=== PATIENT | male | born 1955 | race Two or more races ===

== ENCOUNTER 2018-06-27 07:21 | Outpatient (CLI) | payer OTHER | END 2018-06-27 07:25 | disposition home or self-care (01) | LOC: NUCLEAR 07:21 | DX: I25.10 Atherosclerotic heart disease of native coronary artery without angina pectoris (principal); I20.8 Other forms of angina pectoris | CPT/HCPCS: A9500; 93017; 78452 ==

== ENCOUNTER 2022-11-09 07:06 | Outpatient (CLI) | payer OTHER | END 2022-11-09 13:11 | disposition home or self-care (01) | LOC: SONOGRAMA 07:06 | PROVIDERS: ATTEND Internal Medicine Cardiovascular Disease | DX: J44.9 Chronic obstructive pulmonary disease, unspecified (principal); R10.9 Unspecified abdominal pain; K70.30 Alcoholic cirrhosis of liver without ascites ==

== ENCOUNTER 2022-11-13 11:00 | Inpatient (IN) | payer OTHER ==
[~2022-11-13] VITALS: Ht 175.3 cm; Wt 68.0 kg
--- NOTE | 2022-11-13 11:09 | NUR ---
SE RECIBE PTE ALERTA Y ORIENTADO PTE REFIERE VOMITOS HACE VARIOS SALDAÑA, PTE REFIERE QUE VINO EN EL [facility] [place], SE TAMARA VITALES Y SE BOBO EN SALVATORE DE ESPER[place].
--- NOTE | 2022-11-13 12:49 | NUR ---
PTE ALERTA,ESTABLE Y ORIENTADO.SE EDUCA SOBRE EL TRATAMIENTO QUE RECIBIRA EN L [facility] Y NILDA REFIERE ENTENDER
--- NOTE | 2022-11-13 16:03 | NUR ---
PTE ALERTA Y ORIENTADO X [address] ESFERAS SIENDO [address]UADO POR [address] NORRIS.
--- NOTE | 2022-11-13 20:00 | NUR ---
1945 SE CONTACTA A [facility], PARA CONOCER SI PTE POSEE HX, REFIERE NO POSEE HX. SE REQUIZAN DOS UNIDADES DE PRBC'S PARA TRANSFUSION. 1949 SE COLECTAN TUBOS PILOTOS, BAJO MEDIDAS ASEPTICAS. 1999 SE COLECTAN TUBOS PILOTOS, BAJO MEDIDAS ASEPTICAS. SE ENTREGAN TUBOS A LAB[facility]ATORIO [facility].
== END 2022-11-24 13:46 | disposition home or self-care (01) | DRG 379 ==
LOC: ER 11:00 → MEDI 21:56
PROVIDERS: ADMIT Internal Medicine; ATTEND Internal Medicine
PROC: BW21ZZZ Computerized Tomography (CT Scan) of Abdomen and Pelvis (ICD-10-PCS; 2022-11-13)
PROC: B24BZZZ Ultrasonography of Heart with Aorta (ICD-10-PCS; 2022-11-13)
PROC: BW24YZZ Computerized Tomography (CT Scan) of Chest and Abdomen using Other Contrast (ICD-10-PCS; 2022-11-13)
PROC: BF37ZZZ Magnetic Resonance Imaging (MRI) of Pancreas (ICD-10-PCS; 2022-11-13)
PROC: 4A12X4Z Monitoring of Cardiac Electrical Activity, External Approach (ICD-10-PCS; 2022-11-14)
PROC: 30233N1 Transfusion of Nonautologous Red Blood Cells into Peripheral Vein, Percutaneous Approach (ICD-10-PCS; 2022-11-14)
PROC: 02HV33Z Insertion of Infusion Device into Superior Vena Cava, Percutaneous Approach (ICD-10-PCS; 2022-11-15)
PROC: 0DB68ZX Excision of Stomach, Via Natural or Artificial Opening Endoscopic, Diagnostic (ICD-10-PCS; principal; 2022-11-16)
PROC: BW21YZZ Computerized Tomography (CT Scan) of Abdomen and Pelvis using Other Contrast (ICD-10-PCS; 2022-11-21)
DX: K92.1 Melena (principal); K83.8 Other specified diseases of biliary tract; K63.89 Other specified diseases of intestine; K76.9 Liver disease, unspecified; D64.9 Anemia, unspecified; I25.10 Atherosclerotic heart disease of native coronary artery without angina pectoris; I11.9 Hypertensive heart disease without heart failure; Z20.822 Contact with and (suspected) exposure to COVID-19; F32.A Depression, unspecified; F10.21 Alcohol dependence, in remission

== ENCOUNTER 2023-10-24 02:17 | Emergency (ER) | payer OTHER ==
[~2023-10-24] VITALS: Ht 175.3 cm; Wt 63.5 kg
[2023-10-24] MEDS ORDERED: METROPOLOL (02:40)
[2023-10-24] MEDS ORDERED: SINVASTATIN (02:41)
[2023-10-24 06:05] LABS: HEMOGLOBIN 11.4 g/dL (13-16.00); MEAN CELL VOLUME 93.8 fL (80.0-100.00); MEAN CORPUSCULAR HEMOGLOBIN 32.6 pg (27.00-32.0); MEAN CORPUSCULAR HGB CONC 34.7 g/dl (32.0-36.0); PLATELET COUNT 224 K/uL (150-450); RED BLOOD COUNT 3.51 M/uL (4.00-6.00); RED CELL DISTRIBUTION WIDTH 13.1 % (11.5-14.5)
[2023-10-24 06:31] LABS: PARTIAL THROMBOPLASTIN TIME 24.9 SECONDS (22.0-34.0); PROTHROMBIN TIME 10.5 SECONDS (9.0-11.5)
[2023-10-24 07:17] LABS: ALBUMIN 3.1 gm/dL (3.4-5.0); ALKALINE PHOSPHATASE 64 U/L (50-136); ALT/SGPT 18 U/L (12-78); ANION GAP 9 (10.0-20.0); AST/SGOT 6 U/L (15-37); BILIRUBIN TOTAL 0.25 mg/dL (0.3-1.2); BILIRUBIN,CONJUGATED < 0.10 mg/dL (0.0-0.2); BILIRUBIN,UNCONJUGATED 0.15 mg/dL (0.0-0.6); BLOOD UREA NITROGEN 35 mg/dL (7-18); BUN CREA RATIO 45 (7.0-25.0); CALCIUM 8.3 mg/dL (8.5-10.1); CARBON DIOXIDE 27 mEq/L (21-32); CHLORIDE 109 mmol/L (98-107); CREATININE SERUM 0.77 mg/dL (0.70-1.30); GFR 101.08; GLOBULINA 3.1 G/DL (2.4-3.5); GLUCOSE FASTING 107 mg/dL (65-100); OSMOLALITY SERUM 290 MOSM/KG (275-295); POTASSIUM 4.02 mEq/L (3.5-5.1); SODIUM 141 mmol/L (136-145); TOTAL PROTEIN 6.2 gm/dL (6.4-8.2)
[2023-10-24 07:33] LABS: URINE APPEARANCE Clear; URINE BILIRRUBIN Negative (NEGATIVE); URINE BLOOD Negative; URINE COLOR Yellow; URINE GLUCOSE Negative (NEGATIVE); URINE LEUKOCYTE Negative; URINE NITRATE Negative; URINE PROTEIN Negative (NEGATIVE)
[2023-10-24 07:34] LABS: URINE BACTERIA 57.9 uL (0.0-1933); URINE EPITHELIAL CELLS 7.7 uL (0.0-38.8); URINE RBC 16.9 uL (0.0-20.8); URINE WBC 9.8 uL (0.0-23.2)
[2023-10-24 08:23] LABS: ob NEGATIVE (NEGATIVE)
[2023-10-24 12:21] LABS: HEMATOCRIT 31.1 % (39.0-48.0); HEMOGLOBIN 10.6 g/dL (13-16.00); MEAN CELL VOLUME 94.5 fL (80.0-100.00); MEAN CORPUSCULAR HEMOGLOBIN 32.4 pg (27.00-32.0); MEAN CORPUSCULAR HGB CONC 34.3 g/dl (32.0-36.0); PLATELET COUNT 216 K/uL (150-450); RED BLOOD COUNT 3.29 M/uL (4.00-6.00); RED CELL DISTRIBUTION WIDTH 13.1 % (11.5-14.5)
== END 2023-10-24 14:02 | disposition home or self-care (01) ==
LOC: ER 02:17
PROVIDERS: Emergency Medicine; General Practice
DX: K92.0 Hematemesis (principal); I10 Essential (primary) hypertension; K76.89 Other specified diseases of liver
CPT/HCPCS: 36415; 96365; 96366; 99284; J3490; J7030

== ENCOUNTER 2023-10-24 22:32 | Inpatient (IN) | payer OTHER ==
[~2023-10-24] VITALS: Ht 152.4 cm; Wt 68.0 kg
[~2023-10-24 22:32] MED LIST: METROPOLOL; SINVASTATIN
[2023-10-24] MEDS ORDERED: PANTOPRAZOLE SODIUM 40 MG in 0.9 % SODIUM CHLORIDE 8 ML IV PUSH STA (23:06)
[2023-10-24] MEDS ORDERED: CEFTRIAXONE SODIUM 2,000 MG VIAL IV ONE (23:15)
[2023-10-24] MEDS ORDERED: PANTOPRAZOLE SODIUM 40 MG/VIAL VIAL IV SCH (23:15)
[2023-10-24] MEDS ORDERED: OCTREOTIDE ACETATE 0.05MG/ML (50MCG/ML) AMPUL IV ONE (23:15)
[2023-10-24] MEDS ORDERED: 0.9 % SODIUM CHLORIDE 1,000 ML IV SCH (23:15)
[2023-10-25 00:34] LABS: HEMATOCRIT 24.1 % (39.0-48.0); HEMOGLOBIN 8.2 g/dL (13-16.00); MEAN CELL VOLUME 93.8 fL (80.0-100.00); MEAN CORPUSCULAR HEMOGLOBIN 31.9 pg (27.00-32.0); PLATELET COUNT 206 K/uL (150-450); RED BLOOD COUNT 2.57 M/uL (4.00-6.00)
[2023-10-25 00:42] LABS: INR 1.03; PARTIAL THROMBOPLASTIN TIME 22.8 SECONDS (22.0-34.0); PROTHROMBIN TIME 10.8 SECONDS (9.0-11.5)
[2023-10-25 00:47] LABS: ALBUMIN 2.9 gm/dL (3.4-5.0); ALKALINE PHOSPHATASE 60 U/L (50-136); ALT/SGPT 16 U/L (12-78); AMYLASE 47 U/L (25-115); ANION GAP 12 (10.0-20.0); AST/SGOT 11 U/L (15-37); BILIRUBIN TOTAL 0.21 mg/dL (0.3-1.2); BILIRUBIN,CONJUGATED < 0.10 mg/dL (0.0-0.2); BILIRUBIN,UNCONJUGATED 0.11 mg/dL (0.0-0.6); BLOOD UREA NITROGEN 33 mg/dL (7-18); BUN CREA RATIO 42 (7.0-25.0); CALCIUM 8.1 mg/dL (8.5-10.1); CARBON DIOXIDE 25 mEq/L (21-32); CHLORIDE 109 mmol/L (98-107); CREATININE SERUM 0.79 mg/dL (0.70-1.30); GFR 98.13; GLOBULINA 2.6 G/DL (2.4-3.5); GLUCOSE FASTING 130 mg/dL (65-100); LIPASE 26 U/L (13-75); OSMOLALITY SERUM 292 MOSM/KG (275-295); POTASSIUM 3.99 mEq/L (3.5-5.1); SODIUM 142 mmol/L (136-145); TOTAL PROTEIN 5.5 gm/dL (6.4-8.2)
[2023-10-25] MEDS ORDERED: ONDANSETRON HCL 2 MG/ML VIAL IV SCH (01:00)
[2023-10-25 02:48] LABS: URINE APPEARANCE Clear; URINE BILIRRUBIN Negative (NEGATIVE); URINE BLOOD Negative; URINE COLOR Yellow; URINE GLUCOSE Negative (NEGATIVE); URINE LEUKOCYTE Negative; URINE NITRATE Negative; URINE PROTEIN Negative (NEGATIVE); URINE UROBILINOGEN 0.2 E.U./dl
[2023-10-25 02:52] LABS: URINE BACTERIA 61.7 uL (0.0-1933); URINE EPITHELIAL CELLS 8.9 uL (0.0-38.8); URINE RBC 7.6 uL (0.0-20.8); URINE WBC 7.2 uL (0.0-23.2)
[2023-10-25 06:30] LABS: MEAN CELL VOLUME 92.3 fL (80.0-100.00); MEAN CORPUSCULAR HGB CONC 35.1 g/dl (32.0-36.0); PLATELET COUNT 175 K/uL (150-450); RED BLOOD COUNT 2.35 M/uL (4.00-6.00); RED CELL DISTRIBUTION WIDTH 13.4 % (11.5-14.5)
[2023-10-25 06:33] LABS: HEMATOCRIT 21.7 % (39.0-48.0); MEAN CORPUSCULAR HEMOGLOBIN 32.3 pg (27.00-32.0)
[2023-10-25 06:34] LABS: HEMOGLOBIN 7.6 g/dL (13-16.00)
[2023-10-25] MEDS ORDERED: DIPHENHYDRAMINE HCL 50 MG/ML VIAL 1ML IV SCH (06:45)
[2023-10-25] MEDS ORDERED: FUROsemide 20 MG/2 ML VIAL IV SCH (06:45)
[2023-10-25] MEDS ORDERED: METHYLPREDNISOLONE SOD SUCC 40 MG VIAL IV ONE (06:45)
[2023-10-25] MEDS ORDERED: METHYLPREDNISOLONE SOD SUCC 40 MG VIAL IV SCH (06:45)
[2023-10-25] MEDS ORDERED: DIPHENHYDRAMINE HCL 50 MG/ML VIAL 1ML IV ONE (06:45)
[2023-10-25] MEDS ORDERED: DEXTROSE 5 % AND 0.9 % NACL 1,000 ML IV SCH (09:45)
[2023-10-25] MEDS ORDERED: PANTOPRAZOLE SODIUM 80 MG in 0.9 % SODIUM CHLORIDE 100 ML IV SCH ×2 (10:00→23:45)
[2023-10-25] MEDS ORDERED: LORazepam 2 MG/ML VIAL IV PUSH PRN (10:00)
[2023-10-25] MEDS ORDERED: OCTREOTIDE ACETATE 0.5 MG/ML (500MCG/ML) AMPUL IV SCH (10:00)
[2023-10-25] MEDS ORDERED: ENALAPRILAT DIHYDRATE 1.25 MG/ML VIAL IV PRN (10:00)
[2023-10-25] MEDS ORDERED: FUROsemide 20 MG/2 ML VIAL IV PRN (10:00)
[2023-10-25] MEDS ORDERED: LABETALOL HCL 20MG/4ML SYRINGE IV SCH (12:00)
[2023-10-25] MEDS ORDERED: LABETALOL HCL 100 MG/20 ML ML IV SCH (18:00)
[2023-10-25] MEDS ORDERED: OCTREOTIDE ACETATE 1,250 MCG in 0.9 % SODIUM CHLORIDE 250 ML IV SCH (23:45)
[2023-10-26 08:46] LABS: URINE APPEARANCE Clear; URINE BILIRRUBIN Negative (NEGATIVE); URINE BLOOD Negative; URINE COLOR Yellow; URINE GLUCOSE Negative (NEGATIVE); URINE LEUKOCYTE Negative; URINE NITRATE Negative; URINE PROTEIN Negative (NEGATIVE); URINE UROBILINOGEN 0.2 E.U./dl
[2023-10-26 08:49] LABS: URINE EPITHELIAL CELLS 1.5 uL (0.0-38.8); URINE RBC 3.3 uL (0.0-20.8)
[2023-10-26 09:05] LABS: HEMATOCRIT 28.1 % (39.0-48.0); MEAN CELL VOLUME 88.4 fL (80.0-100.00); PLATELET COUNT 146 K/uL (150-450); RED BLOOD COUNT 3.18 M/uL (4.00-6.00)
[2023-10-26 09:06] LABS: URINE WBC 1.6 uL (0.0-23.2)
[2023-10-26 09:07] LABS: HEMOGLOBIN 9.8 g/dL (13-16.00); MEAN CORPUSCULAR HEMOGLOBIN 30.8 pg (27.00-32.0); RED CELL DISTRIBUTION WIDTH 16.4 % (11.5-14.5)
[2023-10-26 09:29] LABS: INR 0.96; PARTIAL THROMBOPLASTIN TIME 25.7 SECONDS (22.0-34.0); PROTHROMBIN TIME 10.1 SECONDS (9.0-11.5)
[2023-10-26 11:03] LABS: BILIRUBIN TOTAL 0.95 mg/dL (0.3-1.2); BILIRUBIN,CONJUGATED 0.21 mg/dL (0.0-0.2); BILIRUBIN,UNCONJUGATED 0.74 mg/dL (0.0-0.6); CALCIUM 8.1 mg/dL (8.5-10.1); CHOL HDL RATIO 5.8 (0-5.0); CREATININE SERUM 0.86 mg/dL (0.70-1.30); GFR 88.97; GLOBULINA 2.5 G/DL (2.4-3.5); POTASSIUM 3.96 mEq/L (3.5-5.1); PROSTATIC SPECIFIC ANTIGEN 2.45 NG/ML (0.010-4.00); T4 FREE 0.71 NG/ML (0.76-1.46); TOTAL PROTEIN 5.5 gm/dL (6.4-8.2); TSH 0.403 uIU/mL (0.358-3.74)
[2023-10-27 07:22] LABS: HEMATOCRIT 26.9 % (39.0-48.0); HEMOGLOBIN 9.3 g/dL (13-16.00); MEAN CORPUSCULAR HEMOGLOBIN 31.2 pg (27.00-32.0); MEAN CORPUSCULAR HGB CONC 34.7 g/dl (32.0-36.0); PLATELET COUNT 152 K/uL (150-450); RED BLOOD COUNT 2.99 M/uL (4.00-6.00)
[2023-10-27] MEDS ORDERED: LEVALBUTEROL HCL 0.63 MG/3 ML SOLUTION IH SCH ×2 (14:24→18:00)
[2023-10-27 15:44] LABS: MEAN CELL VOLUME 89.4 fL (80.0-100.00); MEAN CORPUSCULAR HGB CONC 34.2 g/dl (32.0-36.0); PLATELET COUNT 161 K/uL (150-450); RED CELL DISTRIBUTION WIDTH 15.7 % (11.5-14.5)
[2023-10-27 16:13] LABS: MEAN CORPUSCULAR HEMOGLOBIN 30.4 pg (27.00-32.0)
[2023-10-27 16:14] LABS: HEMATOCRIT 22.3 % (39.0-48.0); HEMOGLOBIN 7.6 g/dL (13-16.00)
[2023-10-27] MEDS ORDERED: FUROsemide 20 MG/2 ML VIAL IV SCH (16:30)
[2023-10-27] MEDS ORDERED: 0.9 % SODIUM CHLORIDE 250 ML IV SCH (17:00)
[2023-10-27] MEDS ORDERED: NOREPINEPHRINE BITARTRATE 1 MG/ML AMPUL IV ONE (17:42)
[2023-10-27] MEDS ORDERED: NOREPINEPHRINE BITARTRATE 8 MG in DEXTROSE 5 % IN WATER 250 ML IV SCH (17:45)
[2023-10-27] MEDS ORDERED: MEROPENEM 1,000 MG in 0.9 % SODIUM CHLORIDE 100 ML IV SCH (19:55)
[2023-10-27] MEDS ORDERED: VANCOMYCIN HCL 1,000 MG VIAL IV ONE (20:00)
[2023-10-27] MEDS ORDERED: PROPOFOL 10,000 MCG/ML VIAL ONE (21:02)
[2023-10-27] MEDS ORDERED: MIDAZOLAM HCL/PF 5 MG/ML VIAL IV STA (21:30)
[2023-10-27] MEDS ORDERED: MIDAZOLAM HCL 2 MG/2 ML VIAL IV ONE (21:45)
[2023-10-27] MEDS ORDERED: MIDAZOLAM HCL 50 MG/10 ML VIAL IV SCH (23:00)
[2023-10-27 23:31] LABS: INR 1.19; PARTIAL THROMBOPLASTIN TIME 27.3 SECONDS (22.0-34.0); PROTHROMBIN TIME 12.3 SECONDS (9.0-11.5)
[2023-10-28] MEDS ORDERED: 0.9 % SODIUM CHLORIDE 1,000 ML IV SCH (00:30)
[2023-10-28] MEDS ORDERED: NOREPINEPHRINE BITARTRATE 1 MG/ML AMPUL IV ONE (01:36)
[2023-10-28] MEDS ORDERED: MIDAZOLAM HCL 100 MG in 0.9 % SODIUM CHLORIDE 100 ML IV SCH ×2 (06:45→22:00)
[2023-10-28] MEDS ORDERED: MEROPENEM 500 MG/VIAL VIAL IV SCH (08:00)
[2023-10-28 08:15] LABS: ABG PH 7.392 (7.35-7.45); ABG PO2 257.6 mmHg (80-100); ABG pCO2 39.8 mmHg (35-45); BASE EXCESS -1.1 mmol/l; BICARBONATE 23.7 mmol/l (23-25); SaO2 99.8 %; Tco2 24.9 mmol/l; o2 60 %
[2023-10-28 08:16] LABS: allen test SATISFACTORY; puncture site RADIAL RIGHT
[2023-10-28 08:45] LABS: HEMATOCRIT 25.2 % (39.0-48.0); MEAN CELL VOLUME 89.3 fL (80.0-100.00); MEAN CORPUSCULAR HEMOGLOBIN 30.4 pg (27.00-32.0); MEAN CORPUSCULAR HGB CONC 34.3 g/dl (32.0-36.0); PLATELET COUNT 151 K/uL (150-450); RED BLOOD COUNT 2.82 M/uL (4.00-6.00); RED CELL DISTRIBUTION WIDTH 15.5 % (11.5-14.5)
[2023-10-28 08:47] LABS: HEMOGLOBIN 8.6 g/dL (13-16.00)
[2023-10-28] MEDS ORDERED: CHLORHEXIDINE GLUCONATE 120 ML BOTTLE TOP ONE (10:34)
[2023-10-28] MEDS ORDERED: CHLORHEXIDINE GLUCONATE 15ML BRUSH KIT MM SCH (11:54)
[2023-10-28] MEDS ORDERED: POLYVINYL ALCOHOL 15 ML DROPS OP SCH (11:54)
[2023-10-28] MEDS ORDERED: GLUCAGON 1 MG VIAL ONE (14:11)
[2023-10-28] MEDS ORDERED: EPINEPHRINE HCL/PF 1 MG/ML AMPUL ONE ×2 (14:22→14:30)
[2023-10-28] MEDS ORDERED: EPINEPHRINE HCL/PF 1 MG/ML AMPUL IJ STA (14:43)
[2023-10-28] MEDS ORDERED: GLUCAGON 1 MG VIAL IV STA (14:43)
[2023-10-28] MEDS ORDERED: MIDAZOLAM HCL 50 MG in 0.9 % SODIUM CHLORIDE 50 ML IV SCH (20:45)
[2023-10-29 03:40] LABS: HEMATOCRIT 24.8 % (39.0-48.0); MEAN CELL VOLUME 83.4 fL (80.0-100.00); MEAN CORPUSCULAR HGB CONC 34.2 g/dl (32.0-36.0); RED BLOOD COUNT 2.97 M/uL (4.00-6.00)
[2023-10-29 03:42] LABS: HEMOGLOBIN 8.5 g/dL (13-16.00); MEAN CORPUSCULAR HEMOGLOBIN 28.6 pg (27.00-32.0); PLATELET COUNT 132 K/uL (150-450); RED CELL DISTRIBUTION WIDTH 20.6 % (11.5-14.5)
[2023-10-29 04:13] LABS: ALBUMIN 2.4 gm/dL (3.4-5.0); BILIRUBIN TOTAL 1.01 mg/dL (0.3-1.2); CALCIUM 7.2 mg/dL (8.5-10.1); CREATININE SERUM 0.86 mg/dL (0.70-1.30); GFR 88.97; GLOBULINA 2.4 G/DL (2.4-3.5); POTASSIUM 3.34 mEq/L (3.5-5.1); TOTAL PROTEIN 4.8 gm/dL (6.4-8.2)
[2023-10-29] MEDS ORDERED: POTASSIUM CHLORIDE IN WATER 40 MEQ/100 ML PIGGYBAG IV ONE (07:30)
[2023-10-29 09:49] LABS: PROCALCITONIN 4.37 ng/ml (0.020-0.080)
[2023-10-29 10:22] LABS: CORTISOL 13.52 ug/dl
[2023-10-29 10:44] LABS: ABG PH 7.413 (7.35-7.45); ABG PO2 190.6 mmHg (80-100); ABG pCO2 43.7 mmHg (35-45)
[2023-10-29 10:45] LABS: BASE EXCESS 2.2 mmol/l; BICARBONATE 27.2 mmol/l (23-25); Tco2 28.6 mmol/l; allen test SATISFACTORY; o2 40 %; puncture site RADIAL RIGHT
[2023-10-29 10:46] LABS: SaO2 99.7 %
[2023-10-29] MEDS ORDERED: FUROsemide 20 MG/2 ML VIAL IV SCH (15:15)
[2023-10-30 03:05] LABS: HEMATOCRIT 35.2 % (39.0-48.0); HEMOGLOBIN 11.9 g/dL (13-16.00); MEAN CELL VOLUME 83.9 fL (80.0-100.00); MEAN CORPUSCULAR HEMOGLOBIN 28.3 pg (27.00-32.0); MEAN CORPUSCULAR HGB CONC 33.7 g/dl (32.0-36.0); PLATELET COUNT 157 K/uL (150-450); RED CELL DISTRIBUTION WIDTH 18.3 % (11.5-14.5)
[2023-10-30 06:39] LABS: CALCIUM 7.4 mg/dL (8.5-10.1); CREATININE SERUM 0.77 mg/dL (0.70-1.30); GFR 101.08; POTASSIUM 3.34 mEq/L (3.5-5.1)
[2023-10-30] MEDS ORDERED: HYDROCORTISONE SODIUM SUCC/PF 100 MG VIAL IV SCH (07:19)
[2023-10-30 08:21] LABS: ABG PH 7.397 (7.35-7.45); ABG PO2 169.2 mmHg (80-100); ABG pCO2 48.1 mmHg (35-45); BASE EXCESS 3.2 mmol/l; SaO2 99.5 %
[2023-10-30 08:22] LABS: BICARBONATE 28.9 mmol/l (23-25); Tco2 30.4 mmol/l
[2023-10-30 08:23] LABS: o2 35 %; puncture site RADIAL RIGHT
[2023-10-30 08:24] LABS: allen test SATISFACTORY
[2023-10-30] MEDS ORDERED: 0.9 % SODIUM CHLORIDE 500 ML IV SCH (08:30)
[2023-10-30] MEDS ORDERED: SOD FERRIC GLUC COMPLX/SUCROSE 62.5 MG in 0.9 % SODIUM CHLORIDE 50 ML IV SCH (09:00)
[2023-10-30] MEDS ORDERED: POTASSIUM CHLORIDE IN WATER 40 MEQ/100 ML PIGGYBAG IV SCH (09:00)
[2023-10-30 15:10] LABS: URINE APPEARANCE Clear; URINE BILIRRUBIN Negative (NEGATIVE); URINE BLOOD Small; URINE COLOR Yellow; URINE GLUCOSE Negative (NEGATIVE); URINE LEUKOCYTE Negative; URINE NITRATE Negative; URINE PROTEIN 30 (NEGATIVE)
[2023-10-30 15:11] LABS: URINE BACTERIA 20.1 uL (0.0-1933); URINE EPITHELIAL CELLS 2.7 uL (0.0-38.8); URINE RBC 29.1 uL (0.0-20.8); URINE WBC 9.1 uL (0.0-23.2)
[2023-10-30] MEDS ORDERED: VANCOMYCIN HCL 1,000 MG VIAL IV SCH (17:00)
[2023-10-30 20:08] LABS: HEMATOCRIT 32.3 % (39.0-48.0); HEMOGLOBIN 10.8 g/dL (13-16.00); MEAN CELL VOLUME 84.3 fL (80.0-100.00); MEAN CORPUSCULAR HEMOGLOBIN 28.2 pg (27.00-32.0); MEAN CORPUSCULAR HGB CONC 33.5 g/dl (32.0-36.0); PLATELET COUNT 155 K/uL (150-450); RED BLOOD COUNT 3.84 M/uL (4.00-6.00); RED CELL DISTRIBUTION WIDTH 18.6 % (11.5-14.5)
[2023-10-31 06:58] LABS: HEMATOCRIT 29.6 % (39.0-48.0); MEAN CELL VOLUME 85.1 fL (80.0-100.00); MEAN CORPUSCULAR HEMOGLOBIN 28.7 pg (27.00-32.0); MEAN CORPUSCULAR HGB CONC 33.8 g/dl (32.0-36.0); PLATELET COUNT 175 K/uL (150-450); RED BLOOD COUNT 3.48 M/uL (4.00-6.00); RED CELL DISTRIBUTION WIDTH 18.7 % (11.5-14.5)
[2023-10-31 07:16] LABS: ALBUMIN 2.3 gm/dL (3.4-5.0); BILIRUBIN TOTAL 0.46 mg/dL (0.3-1.2); CREATININE SERUM 0.67 mg/dL (0.70-1.30); GFR 118.68; GLOBULINA 2.7 G/DL (2.4-3.5); POTASSIUM 4.2 mEq/L (3.5-5.1)
[2023-10-31] MEDS ORDERED: SODIUM CHLORIDE 0.45 % 1,000 ML IV SCH (08:15)
[2023-10-31] MEDS ORDERED: PANTOPRAZOLE SODIUM 40 MG/VIAL VIAL IV PUSH SCH (09:00)
[2023-10-31 09:22] LABS: ABG PH 7.398 (7.35-7.45); ABG PO2 89.5 mmHg (80-100); ABG pCO2 48.6 mmHg (35-45); BASE EXCESS 3.6 mmol/l; BICARBONATE 29.3 mmol/l (23-25); SaO2 96.9 %; Tco2 30.8 mmol/l
[2023-10-31 09:24] LABS: o2 35 %; puncture site RADIAL LEFT
[2023-10-31 09:25] LABS: allen test SATISFACTORY
[2023-10-31] MEDS ORDERED: HYDROCORTISONE SODIUM SUCC/PF 100 MG VIAL IV SCH (12:00)
[2023-10-31] MEDS ORDERED: PROPOFOL 100 ML IV SCH (21:15)
[2023-11-01] MEDS ORDERED: ALBUTEROL SULFATE 3 ML/2.5 MG AMPUL.NEB IH ONE ×2 (11:00→11:02)
[2023-11-01] MEDS ORDERED: RACEPINEPHRINE HCL 0.5 ML AMPUL IH ONE ×2 (11:00→11:02)
[2023-11-01 11:55] LABS: ABG PH 7.459 (7.35-7.45); ABG PO2 124.4 mmHg (80-100); ABG pCO2 44.6 mmHg (35-45)
[2023-11-01 11:56] LABS: BASE EXCESS 6.2 mmol/l; Tco2 32.3 mmol/l; allen test SATISFACTORY; puncture site RADIAL RIGHT
[2023-11-01 11:57] LABS: o2 35 %
[2023-11-01 12:24] LABS: ABG PH 7.449 (7.35-7.45); ABG PO2 102.7 mmHg (80-100); ABG pCO2 44.5 mmHg (35-45); BASE EXCESS 5.4 mmol/l; BICARBONATE 30.2 mmol/l (23-25); SaO2 98.3 %; Tco2 31.5 mmol/l; allen test SATISFACTORY; o2 50 %; puncture site RADIAL RIGHT
[2023-11-01] MEDS ORDERED: EPOETIN ALFA-EPBX 10,000 UNIT/ML 2ML VIAL SUBCUTANEO SCH (17:00)
[2023-11-01] MEDS ORDERED: VANCOMYCIN HCL 5 MG/ML REDILUIDO IV SCH (18:00)
[2023-11-02] MEDS ORDERED: ONDANSETRON HCL 2 MG/ML VIAL IV SCH (09:26)
[2023-11-02] MEDS ORDERED: ONDANSETRON HCL 2 MG/ML VIAL IV ONE (09:30)
[2023-11-02] MEDS ORDERED: PANTOPRAZOLE SODIUM 80 MG in 0.9 % SODIUM CHLORIDE 100 ML IV SCH (09:30)
[2023-11-02 10:21] LABS: MEAN CELL VOLUME 86.3 fL (80.0-100.00); MEAN CORPUSCULAR HGB CONC 32.7 g/dl (32.0-36.0); PLATELET COUNT 287 K/uL (150-450); RED BLOOD COUNT 2.78 M/uL (4.00-6.00); RED CELL DISTRIBUTION WIDTH 19.4 % (11.5-14.5)
[2023-11-02 10:28] LABS: MEAN CORPUSCULAR HEMOGLOBIN 28.4 pg (27.00-32.0)
[2023-11-02 10:29] LABS: HEMOGLOBIN 7.9 g/dL (13-16.00)
[2023-11-02] MEDS ORDERED: 0.9 % SODIUM CHLORIDE 250 ML IV ONE (15:45)
[2023-11-03 06:00] LABS: HEMATOCRIT 25.2 % (39.0-48.0); MEAN CELL VOLUME 87.5 fL (80.0-100.00); MEAN CORPUSCULAR HGB CONC 33.9 g/dl (32.0-36.0); PLATELET COUNT 208 K/uL (150-450); RED BLOOD COUNT 2.88 M/uL (4.00-6.00); RED CELL DISTRIBUTION WIDTH 16.7 % (11.5-14.5)
[2023-11-03 06:03] LABS: HEMOGLOBIN 8.5 g/dL (13-16.00); MEAN CORPUSCULAR HEMOGLOBIN 29.5 pg (27.00-32.0)
[2023-11-03 06:15] LABS: INR 1.11; PARTIAL THROMBOPLASTIN TIME 25.2 SECONDS (22.0-34.0); PROTHROMBIN TIME 11.6 SECONDS (9.0-11.5)
[2023-11-04 02:36] LABS: HEMATOCRIT 30.6 % (39.0-48.0); HEMOGLOBIN 10.5 g/dL (13-16.00); MEAN CELL VOLUME 86.8 fL (80.0-100.00); MEAN CORPUSCULAR HEMOGLOBIN 29.8 pg (27.00-32.0); MEAN CORPUSCULAR HGB CONC 34.3 g/dl (32.0-36.0); PLATELET COUNT 213 K/uL (150-450); RED BLOOD COUNT 3.52 M/uL (4.00-6.00); RED CELL DISTRIBUTION WIDTH 16.4 % (11.5-14.5)
[2023-11-04] MEDS ORDERED: ERYTHROMYCIN LACTOBIONATE 500 MG VIAL IV ONE (09:00)
[2023-11-04] MEDS ORDERED: EPINEPHRINE HCL/PF 1 MG/ML AMPUL ONE (14:55)
[2023-11-04] MEDS ORDERED: MIDAZOLAM HCL 2 MG/2 ML VIAL IV STA (15:18)
[2023-11-04] MEDS ORDERED: FentaNYL CITRATE/PF 50MCG/ML 2ML VIAL IJ STA (15:18)
[2023-11-04] MEDS ORDERED: MEROPENEM 500 MG/VIAL VIAL IV SCH (18:00)
[2023-11-05 06:28] LABS: HEMATOCRIT 30.1 % (39.0-48.0); HEMOGLOBIN 10.4 g/dL (13-16.00); MEAN CELL VOLUME 89.6 fL (80.0-100.00); MEAN CORPUSCULAR HEMOGLOBIN 30.9 pg (27.00-32.0); MEAN CORPUSCULAR HGB CONC 34.5 g/dl (32.0-36.0); PLATELET COUNT 253 K/uL (150-450); RED BLOOD COUNT 3.36 M/uL (4.00-6.00); RED CELL DISTRIBUTION WIDTH 16.1 % (11.5-14.5)
[2023-11-05 06:54] LABS: ALBUMIN 2.3 gm/dL (3.4-5.0); BILIRUBIN TOTAL 0.8 mg/dL (0.3-1.2); CALCIUM 7.5 mg/dL (8.5-10.1); CREATININE SERUM 0.46 mg/dL (0.70-1.30); GFR 183.17; GLOBULINA 2.2 G/DL (2.4-3.5); MAGNESIUM 2.3 mg/dL (1.8-2.4); POTASSIUM 3.23 mEq/L (3.5-5.1); TOTAL PROTEIN 4.5 gm/dL (6.4-8.2)
[2023-11-05 06:58] LABS: C-REACTIVE PROTEIN 0.53 MG/DL (0.00-0.29)
[2023-11-06 02:17] LABS: HEMATOCRIT 30.1 % (39.0-48.0); MEAN CELL VOLUME 90.6 fL (80.0-100.00); MEAN CORPUSCULAR HEMOGLOBIN 30.1 pg (27.00-32.0); MEAN CORPUSCULAR HGB CONC 33.3 g/dl (32.0-36.0); PLATELET COUNT 386 K/uL (150-450); RED BLOOD COUNT 3.32 M/uL (4.00-6.00); RED CELL DISTRIBUTION WIDTH 16.9 % (11.5-14.5)
[2023-11-06] MEDS ORDERED: 0.9 % SODIUM CHLORIDE 1,000 ML IV STA (02:17)
[2023-11-06] MEDS ORDERED: NOREPINEPHRINE BITARTRATE 1 MG/ML AMPUL IV ONE (05:30)
[2023-11-06] MEDS ORDERED: NOREPINEPHRINE BITARTRATE 1 MG/ML AMPUL IV SCH (06:00)
[2023-11-06] MEDS ORDERED: PHENYLEPHRINE HCL 20 MG in 0.9 % SODIUM CHLORIDE 250 ML IV SCH (06:45)
[2023-11-06] MEDS ORDERED: 0.9 % SODIUM CHLORIDE 1,000 ML IV ONE (06:45)
[2023-11-06] MEDS ORDERED: PROPOFOL 10,000 MCG/ML VIAL IV ONE (08:49)
[2023-11-06] MEDS ORDERED: ALBUMIN HUMAN 100 ML VIAL IV ONE (09:30)
[2023-11-06] MEDS ORDERED: 0.9 % SODIUM CHLORIDE 2,000 ML IV ONE (09:45)
[2023-11-06] MEDS ORDERED: RINGERS SOLUTION,LACTATED 1,000 ML IV ONE (09:45)
[2023-11-06 11:00] LABS: ABG PO2 377.5 mmHg (80-100); ABG pCO2 33.4 mmHg (35-45); BICARBONATE 20.7 mmol/l (23-25); Tco2 21.7 mmol/l
[2023-11-06 11:01] LABS: allen test SATISFACTORY; o2 100 %; puncture site RADIAL LEFT
[2023-11-06] MEDS ORDERED: NOREPINEPHRINE BITARTRATE 8 MG in DEXTROSE 5 % IN WATER 250 ML IV SCH (11:30)
[2023-11-06] MEDS ORDERED: PROPOFOL 100 ML IV SCH (13:45)
[2023-11-06] MEDS ORDERED: MIDAZOLAM HCL 2 MG/2 ML VIAL IV PUSH STA (15:15)
[2023-11-06] MEDS ORDERED: POLYVINYL ALCOHOL 15 ML DROPS OP SCH (17:00)
[2023-11-06] MEDS ORDERED: CHLORHEXIDINE GLUCONATE 15ML BRUSH KIT MM SCH (17:00)
[2023-11-06] MEDS ORDERED: MIDAZOLAM HCL 100 MG in 0.9 % SODIUM CHLORIDE 100 ML IV SCH (22:15)
[2023-11-07 02:44] LABS: MEAN CELL VOLUME 88.4 fL (80.0-100.00); MEAN CORPUSCULAR HEMOGLOBIN 30.4 pg (27.00-32.0); MEAN CORPUSCULAR HGB CONC 34.7 g/dl (32.0-36.0); PLATELET COUNT 166 K/uL (150-450); RED BLOOD COUNT 1.64 M/uL (4.00-6.00); RED CELL DISTRIBUTION WIDTH 14.9 % (11.5-14.5)
[2023-11-07 02:45] LABS: HEMATOCRIT 14.5 % (39.0-48.0)
[2023-11-08 01:17] LABS: HEMATOCRIT 30.1 % (39.0-48.0); HEMOGLOBIN 10.4 g/dL (13-16.00); MEAN CELL VOLUME 86.7 fL (80.0-100.00); MEAN CORPUSCULAR HEMOGLOBIN 30.1 pg (27.00-32.0); MEAN CORPUSCULAR HGB CONC 34.6 g/dl (32.0-36.0); PLATELET COUNT 139 K/uL (150-450); RED BLOOD COUNT 3.47 M/uL (4.00-6.00); RED CELL DISTRIBUTION WIDTH 15.6 % (11.5-14.5)
[2023-11-08 01:29] LABS: ALBUMIN 1.9 gm/dL (3.4-5.0); BILIRUBIN TOTAL 1.39 mg/dL (0.3-1.2); CALCIUM 6.7 mg/dL (8.5-10.1); CREATININE SERUM 0.51 mg/dL (0.70-1.30); GFR 162.6; GLOBULINA 1.7 G/DL (2.4-3.5); MAGNESIUM 1.8 mg/dL (1.8-2.4); TOTAL PROTEIN 3.6 gm/dL (6.4-8.2)
[2023-11-08 02:20] LABS: C-REACTIVE PROTEIN 3.67 MG/DL (0.00-0.29)
[2023-11-08 02:58] LABS: POTASSIUM 2.71 mEq/L (3.5-5.1)
[2023-11-08 02:59] LABS: PHOSPHOROUS 1.7 mg/dL (2.5-4.9)
[2023-11-08] MEDS ORDERED: POTASSIUM CHLORIDE IN WATER 100 ML IV SCH (04:00)
[2023-11-08 08:39] LABS: ABG PH 7.448 (7.35-7.45)
[2023-11-08 08:40] LABS: ABG PO2 159.2 mmHg (80-100); ABG pCO2 39.6 mmHg (35-45); BASE EXCESS 2.7 mmol/l; BICARBONATE 26.8 mmol/l (23-25); SaO2 99.5 %
[2023-11-08 08:41] LABS: o2 60 %
[2023-11-08 08:42] LABS: allen test SATISFACTORY; puncture site RADIAL LEFT
[2023-11-08] MEDS ORDERED: POTASSIUM PHOS,M-BASIC-D-BASIC 3 MM/ML VIAL IV ONE (12:00)
[2023-11-09 07:25] LABS: HEMATOCRIT 29.1 % (39.0-48.0); HEMOGLOBIN 10.1 g/dL (13-16.00); MEAN CELL VOLUME 87.1 fL (80.0-100.00); MEAN CORPUSCULAR HEMOGLOBIN 30.2 pg (27.00-32.0); MEAN CORPUSCULAR HGB CONC 34.7 g/dl (32.0-36.0); PLATELET COUNT 178 K/uL (150-450); RED BLOOD COUNT 3.34 M/uL (4.00-6.00); RED CELL DISTRIBUTION WIDTH 15.8 % (11.5-14.5)
[2023-11-09 07:41] LABS: ALBUMIN 1.8 gm/dL (3.4-5.0); BILIRUBIN TOTAL 1.12 mg/dL (0.3-1.2); CALCIUM 6.9 mg/dL (8.5-10.1); CREATININE SERUM 0.47 mg/dL (0.70-1.30); GFR 178.68; GLOBULINA 1.9 G/DL (2.4-3.5); POTASSIUM 3.04 mEq/L (3.5-5.1); TOTAL PROTEIN 3.7 gm/dL (6.4-8.2)
[2023-11-09 08:56] LABS: ABG PH 7.441 (7.35-7.45); ABG PO2 121.9 mmHg (80-100); ABG pCO2 37.2 mmHg (35-45); BASE EXCESS 0.9 mmol/l; BICARBONATE 24.8 mmol/l (23-25); SaO2 98.9 %; Tco2 25.9 mmol/l; o2 50 %
[2023-11-09 08:57] LABS: allen test SATISFACTORY; puncture site RADIAL LEFT
[2023-11-10] MEDS ORDERED: POTASSIUM CHLORIDE 20MEQ/100ML H2O PB IV ONE (00:15)
[2023-11-10 07:28] LABS: ALBUMIN 1.7 gm/dL (3.4-5.0); BILIRUBIN TOTAL 1.04 mg/dL (0.3-1.2); CALCIUM 7.4 mg/dL (8.5-10.1); CREATININE SERUM 0.52 mg/dL (0.70-1.30); GLOBULINA 2.3 G/DL (2.4-3.5); PHOSPHOROUS 2.5 mg/dL (2.5-4.9); POTASSIUM 3.26 mEq/L (3.5-5.1)
[2023-11-10 07:37] LABS: HEMOGLOBIN 10.5 g/dL (13-16.00); MEAN CELL VOLUME 88.2 fL (80.0-100.00); MEAN CORPUSCULAR HEMOGLOBIN 29.9 pg (27.00-32.0); MEAN CORPUSCULAR HGB CONC 33.9 g/dl (32.0-36.0); PLATELET COUNT 200 K/uL (150-450); RED BLOOD COUNT 3.52 M/uL (4.00-6.00); RED CELL DISTRIBUTION WIDTH 16.6 % (11.5-14.5)
[2023-11-10 12:28] LABS: ABG PH 7.425 (7.35-7.45); ABG PO2 121.7 mmHg (80-100); ABG pCO2 38.7 mmHg (35-45); BASE EXCESS 0.6 mmol/l; BICARBONATE 24.8 mmol/l (23-25); SaO2 98.8 %
[2023-11-10 12:29] LABS: o2 40 %
[2023-11-10 12:37] LABS: allen test SATISFACTORY; puncture site RADIAL RIGHT
[2023-11-10 16:26] LABS: CALCIUM 7.1 mg/dL (8.5-10.1); CHOL HDL RATIO 4.3 (0-5.0); CREATININE SERUM 0.52 mg/dL (0.70-1.30); POTASSIUM 3.25 mEq/L (3.5-5.1)
[2023-11-10] MEDS ORDERED: AA 5 %/CALCIUM/LYTES/DEXT 20 % 2,000 ML CENTRAL SCH (17:00)
[2023-11-11 07:11] LABS: HEMATOCRIT 33.4 % (39.0-48.0); HEMOGLOBIN 10.6 g/dL (13-16.00); MEAN CELL VOLUME 94.1 fL (80.0-100.00); MEAN CORPUSCULAR HEMOGLOBIN 29.9 pg (27.00-32.0); MEAN CORPUSCULAR HGB CONC 31.8 g/dl (32.0-36.0); PLATELET COUNT 213 K/uL (150-450); RED BLOOD COUNT 3.55 M/uL (4.00-6.00); RED CELL DISTRIBUTION WIDTH 17.1 % (11.5-14.5)
[2023-11-11 07:18] LABS: ALBUMIN 1.6 gm/dL (3.4-5.0); BILIRUBIN TOTAL 0.52 mg/dL (0.3-1.2); CALCIUM 7.1 mg/dL (8.5-10.1); CREATININE SERUM 0.87 mg/dL (0.70-1.30); GFR 87.79; GLOBULINA 2.5 G/DL (2.4-3.5); MAGNESIUM 2.5 mg/dL (1.8-2.4); PHOSPHOROUS 4.5 mg/dL (2.5-4.9); POTASSIUM 4.48 mEq/L (3.5-5.1); TOTAL PROTEIN 4.1 gm/dL (6.4-8.2)
[2023-11-11 08:36] LABS: ABG PH 7.496 (7.35-7.45); ABG pCO2 40.4 mmHg (35-45); BASE EXCESS 6.7 mmol/l; BICARBONATE 30.5 mmol/l (23-25); SaO2 97.4 %; Tco2 31.7 mmol/l
[2023-11-11 08:37] LABS: allen test SATISFACTORY; o2 40 %; puncture site RADIAL LEFT
[2023-11-11] MEDS ORDERED: SOD FERRIC GLUC COMPLX/SUCROSE 125 MG in 0.9 % SODIUM CHLORIDE 100 ML IV SCH (10:12)
[2023-11-11] MEDS ORDERED: RINGERS SOLUTION,LACTATED 1,000 ML IV SCH (10:15)
[2023-11-11 10:56] LABS: MEAN CELL VOLUME 89.1 fL (80.0-100.00); MEAN CORPUSCULAR HEMOGLOBIN 29.6 pg (27.00-32.0); MEAN CORPUSCULAR HGB CONC 33.2 g/dl (32.0-36.0); PLATELET COUNT 233 K/uL (150-450); RED BLOOD COUNT 4.04 M/uL (4.00-6.00)
[2023-11-11 13:08] LABS: INR 1.23; PROTHROMBIN TIME 12.7 SECONDS (9.0-11.5)
[2023-11-11 13:09] LABS: CALCIUM 7.6 mg/dL (8.5-10.1); CREATININE SERUM 0.62 mg/dL (0.70-1.30); GFR 129.79; POTASSIUM 3.08 mEq/L (3.5-5.1)
[2023-11-11] MEDS ORDERED: ANIDULAFUNGIN 100 MG VIAL IV ONE (16:45)
[2023-11-12 06:56] LABS: PH,URINE 7.5 (5.0-8.0); URINE APPEARANCE Clear; URINE BILIRRUBIN Negative (NEGATIVE); URINE BLOOD Small; URINE COLOR Yellow; URINE GLUCOSE Negative (NEGATIVE); URINE LEUKOCYTE Trace; URINE NITRATE Negative; URINE PROTEIN Negative (NEGATIVE); URINE UROBILINOGEN 0.2 E.U./dl
[2023-11-12 06:59] LABS: URINE BACTERIA 12.5 uL (0.0-1933); URINE EPITHELIAL CELLS 2.4 uL (0.0-38.8); URINE RBC 27.2 uL (0.0-20.8); URINE WBC 24.2 uL (0.0-23.2)
[2023-11-12] MEDS ORDERED: MAGNESIUM SULFATE IN WATER 50 ML IV ONE (08:18)
[2023-11-12 08:32] LABS: ABG PH 7.513 (7.35-7.45); ABG PO2 123.3 mmHg (80-100); ABG pCO2 42.6 mmHg (35-45); BASE EXCESS 9.4 mmol/l; BICARBONATE 33.4 mmol/l (23-25); SaO2 99.2 %; Tco2 34.7 mmol/l
[2023-11-12 08:34] LABS: allen test SATISFACTORY; o2 40 %; puncture site RADIAL LEFT
[2023-11-12] MEDS ORDERED: SOD FERRIC GLUC COMPLX/SUCROSE 62.5 MG in 0.9 % SODIUM CHLORIDE 50 ML IV SCH (09:00)
[2023-11-12] MEDS ORDERED: PHYTONADIONE 10 MG/ML AMPUL IV SCH (09:00)
[2023-11-12] MEDS ORDERED: POTASSIUM CHLORIDE IN WATER 40 MEQ/100 ML PIGGYBAG IV SCH (09:00)
[2023-11-12] MEDS ORDERED: PANTOPRAZOLE SODIUM 80 MG in 0.9 % SODIUM CHLORIDE 100 ML IV SCH (12:15)
[2023-11-12] MEDS ORDERED: ANIDULAFUNGIN 100 MG VIAL IV SCH (17:00)
[2023-11-13 06:13] LABS: HEMATOCRIT 29.5 % (39.0-48.0); MEAN CELL VOLUME 88.2 fL (80.0-100.00); MEAN CORPUSCULAR HEMOGLOBIN 29.9 pg (27.00-32.0); MEAN CORPUSCULAR HGB CONC 33.9 g/dl (32.0-36.0); PLATELET COUNT 233 K/uL (150-450); RED BLOOD COUNT 3.34 M/uL (4.00-6.00); RED CELL DISTRIBUTION WIDTH 15.6 % (11.5-14.5)
[2023-11-13 07:01] LABS: ALBUMIN 1.5 gm/dL (3.4-5.0); BILIRUBIN TOTAL 0.56 mg/dL (0.3-1.2); CALCIUM 7.5 mg/dL (8.5-10.1); CREATININE SERUM 0.56 mg/dL (0.70-1.30); GFR 145.97; GLOBULINA 2.6 G/DL (2.4-3.5); POTASSIUM 3.34 mEq/L (3.5-5.1); TOTAL PROTEIN 4.1 gm/dL (6.4-8.2)
[2023-11-13 07:54] LABS: ABG PH 7.479 (7.35-7.45); ABG PO2 171.5 mmHg (80-100); ABG pCO2 45.6 mmHg (35-45)
[2023-11-13 07:55] LABS: BASE EXCESS 8.4 mmol/l; BICARBONATE 33.1 mmol/l (23-25); SaO2 99.6 %; Tco2 34.5 mmol/l; o2 40 %
[2023-11-13 07:56] LABS: allen test NO SATISFACTORY; puncture site RADIAL LEFT
[2023-11-13] MEDS ORDERED: ALBUMIN HUMAN 100 ML VIAL IV SCH (09:00)
[2023-11-13] MEDS ORDERED: FUROsemide 20 MG TABLET PO SCH (09:00)
[2023-11-14 06:29] LABS: HEMATOCRIT 28.4 % (39.0-48.0); HEMOGLOBIN 9.5 g/dL (13-16.00); MEAN CELL VOLUME 89.8 fL (80.0-100.00); MEAN CORPUSCULAR HEMOGLOBIN 29.9 pg (27.00-32.0); MEAN CORPUSCULAR HGB CONC 33.3 g/dl (32.0-36.0); PLATELET COUNT 242 K/uL (150-450); RED BLOOD COUNT 3.17 M/uL (4.00-6.00); RED CELL DISTRIBUTION WIDTH 15.7 % (11.5-14.5)
[2023-11-14 08:33] LABS: ABG PH 7.505 (7.35-7.45); ABG PO2 226.9 mmHg (80-100); ABG pCO2 44.6 mmHg (35-45); BICARBONATE 34.4 mmol/l (23-25); SaO2 99.9 %; Tco2 35.7 mmol/l
[2023-11-14 08:34] LABS: allen test SATISFACTORY; o2 70 %; puncture site RADIAL LEFT
[2023-11-14] MEDS ORDERED: MIDAZOLAM HCL 2 MG/2 ML VIAL IV ONE (15:15)
[2023-11-14 19:38] LABS: TP PLEURAL FLUID 2.1 g/dl
[2023-11-14 20:17] LABS: MONONUCLEAR 91 %; PLEURAL FLUID APPEARANCE CLOUDY; PLEURAL FLUID COLOR YELLOW; POLYMORPHONUCLEAR 9 %
[2023-11-15 07:01] LABS: HEMATOCRIT 27.5 % (39.0-48.0); HEMOGLOBIN 9.3 g/dL (13-16.00); MEAN CELL VOLUME 87.6 fL (80.0-100.00); MEAN CORPUSCULAR HEMOGLOBIN 29.8 pg (27.00-32.0); PLATELET COUNT 235 K/uL (150-450); RED BLOOD COUNT 3.14 M/uL (4.00-6.00)
[2023-11-15 07:23] LABS: ALBUMIN 2.7 gm/dL (3.4-5.0); BILIRUBIN TOTAL 0.94 mg/dL (0.3-1.2); CALCIUM 8.1 mg/dL (8.5-10.1); CREATININE SERUM 0.64 mg/dL (0.70-1.30); GFR 125.12; GLOBULINA 2.8 G/DL (2.4-3.5); POTASSIUM 3.48 mEq/L (3.5-5.1); TOTAL PROTEIN 5.5 gm/dL (6.4-8.2)
[2023-11-15 09:43] LABS: ABG PH 7.517 (7.35-7.45); ABG PO2 156.1 mmHg (80-100); ABG pCO2 40.9 mmHg (35-45); BASE EXCESS 8.8 mmol/l; BICARBONATE 32.5 mmol/l (23-25); SaO2 99.6 %; Tco2 33.7 mmol/l
[2023-11-15 09:44] LABS: allen test SATISFACTORY; o2 50 %; puncture site RADIAL LEFT
[2023-11-15 19:06] LABS: TP PLEURAL FLUID 2.4 g/dl
[2023-11-15 19:16] LABS: PLEURAL FLUID APPEARANCE CRYSTAL CLEAR
[2023-11-15 19:45] LABS: MONONUCLEAR 70 %; PLEURAL FLUID COLOR YELLOW; POLYMORPHONUCLEAR 30 %
[2023-11-16 08:16] LABS: ABG PH 7.484 (7.35-7.45); ABG PO2 154.4 mmHg (80-100); ABG pCO2 39.9 mmHg (35-45); BASE EXCESS 5.5 mmol/l; BICARBONATE 29.3 mmol/l (23-25); SaO2 99.5 %; Tco2 30.5 mmol/l
[2023-11-16 08:17] LABS: allen test SATISFACTORY; o2 40 %; puncture site RADIAL RIGHT
[2023-11-16 09:13] LABS: HEMATOCRIT 29.6 % (39.0-48.0); HEMOGLOBIN 9.9 g/dL (13-16.00); MEAN CELL VOLUME 89.8 fL (80.0-100.00); MEAN CORPUSCULAR HEMOGLOBIN 29.9 pg (27.00-32.0); MEAN CORPUSCULAR HGB CONC 33.3 g/dl (32.0-36.0); PLATELET COUNT 265 K/uL (150-450); RED CELL DISTRIBUTION WIDTH 16.2 % (11.5-14.5)
[2023-11-16 16:59] LABS: ABG PH 7.387 (7.35-7.45); ABG PO2 128.9 mmHg (80-100); ABG pCO2 50.4 mmHg (35-45); BASE EXCESS 3.5 mmol/l; BICARBONATE 29.6 mmol/l (23-25); SaO2 98.9 %; Tco2 31.2 mmol/l
[2023-11-16 17:00] LABS: allen test SATISFACTORY; o2 40 %; puncture site RADIAL RIGHT
[2023-11-16] MEDS ORDERED: MIDAZOLAM HCL 100 MG in 0.9 % SODIUM CHLORIDE 100 ML IV SCH (23:15)
[2023-11-17 07:28] LABS: HEMATOCRIT 29.3 % (39.0-48.0); HEMOGLOBIN 9.7 g/dL (13-16.00); MEAN CORPUSCULAR HEMOGLOBIN 29.1 pg (27.00-32.0); MEAN CORPUSCULAR HGB CONC 33.1 g/dl (32.0-36.0); PLATELET COUNT 243 K/uL (150-450); RED BLOOD COUNT 3.33 M/uL (4.00-6.00); RED CELL DISTRIBUTION WIDTH 15.9 % (11.5-14.5)
[2023-11-17 08:52] LABS: ABG PH 7.461 (7.35-7.45); ABG pCO2 41.3 mmHg (35-45)
[2023-11-17 08:53] LABS: ABG PO2 185.3 mmHg (80-100); BASE EXCESS 4.5 mmol/l; SaO2 99.7 %
[2023-11-17 08:54] LABS: BICARBONATE 28.8 mmol/l (23-25); allen test SATISFACTORY
[2023-11-17 08:55] LABS: o2 40 %; puncture site RADIAL LEFT
[2023-11-17] MEDS ORDERED: MIDAZOLAM HCL 100 MG in 0.9 % SODIUM CHLORIDE 100 ML IV SCH (22:00)
[2023-11-18 06:19] LABS: HEMATOCRIT 29.1 % (39.0-48.0); HEMOGLOBIN 9.7 g/dL (13-16.00); MEAN CELL VOLUME 86.5 fL (80.0-100.00); MEAN CORPUSCULAR HEMOGLOBIN 28.8 pg (27.00-32.0); MEAN CORPUSCULAR HGB CONC 33.3 g/dl (32.0-36.0); PLATELET COUNT 259 K/uL (150-450); RED BLOOD COUNT 3.37 M/uL (4.00-6.00)
[2023-11-18 06:49] LABS: ALBUMIN 2.3 gm/dL (3.4-5.0); BILIRUBIN TOTAL 0.91 mg/dL (0.3-1.2); BILIRUBIN,CONJUGATED 0.34 mg/dL (0.0-0.2); BILIRUBIN,UNCONJUGATED 0.57 mg/dL (0.0-0.6); CALCIUM 8.2 mg/dL (8.5-10.1); CHOL HDL RATIO 7.2 (0-5.0); CREATININE SERUM 0.72 mg/dL (0.70-1.30); GFR 109.22; GLOBULINA 3.6 G/DL (2.4-3.5); MAGNESIUM 2.4 mg/dL (1.8-2.4); POTASSIUM 4.07 mEq/L (3.5-5.1); TOTAL PROTEIN 5.9 gm/dL (6.4-8.2)
[2023-11-18 07:11] LABS: INR 1.2; PARTIAL THROMBOPLASTIN TIME 31.4 SECONDS (22.0-34.0); PROTHROMBIN TIME 12.4 SECONDS (9.0-11.5)
[2023-11-18 08:19] LABS: ABG PH 7.509 (7.35-7.45); ABG pCO2 38.1 mmHg (35-45)
[2023-11-18 08:20] LABS: ABG PO2 147.8 mmHg (80-100); BASE EXCESS 6.4 mmol/l; BICARBONATE 29.7 mmol/l (23-25); SaO2 99.5 %; Tco2 30.8 mmol/l; allen test SATISFACTORY; o2 40 %; puncture site RADIAL LEFT
[2023-11-18 09:10] LABS: UREA CLEARANCE 36.5 ML/MIN
[2023-11-18] MEDS ORDERED: AA 4.25%/CAL/LYTES/DEXT 5% 1,000 ML PERIFERAL SCH (17:00)
[2023-11-18] MEDS ORDERED: VANCOMYCIN HCL 1,000 MG VIAL IV SCH (17:00)
[2023-11-18 19:32] LABS: URINE APPEARANCE Clear; URINE BILIRRUBIN Negative (NEGATIVE); URINE BLOOD Moderate; URINE COLOR Yellow; URINE GLUCOSE Negative (NEGATIVE); URINE LEUKOCYTE Small; URINE NITRATE Negative
[2023-11-18 19:33] LABS: URINE PROTEIN 100 (NEGATIVE)
[2023-11-18 19:36] LABS: URINE BACTERIA 26.4 uL (0.0-1933); URINE EPITHELIAL CELLS 5.1 uL (0.0-38.8); URINE RBC 421.2 uL (0.0-20.8); URINE WBC 62.7 uL (0.0-23.2)
[2023-11-18 20:15] LABS: URINE YEAST FEW /hpf
[2023-11-19 06:26] LABS: HEMATOCRIT 26.9 % (39.0-48.0); HEMOGLOBIN 9.2 g/dL (13-16.00); MEAN CELL VOLUME 88.1 fL (80.0-100.00); PLATELET COUNT 249 K/uL (150-450); RED BLOOD COUNT 3.05 M/uL (4.00-6.00); RED CELL DISTRIBUTION WIDTH 15.8 % (11.5-14.5)
[2023-11-19 07:06] LABS: BILIRUBIN TOTAL 0.77 mg/dL (0.3-1.2); CREATININE SERUM 0.73 mg/dL (0.70-1.30); GFR 107.5; GLOBULINA 3.3 G/DL (2.4-3.5); MAGNESIUM 2.6 mg/dL (1.8-2.4); PHOSPHOROUS 4.3 mg/dL (2.5-4.9); POTASSIUM 4.17 mEq/L (3.5-5.1); TOTAL PROTEIN 5.3 gm/dL (6.4-8.2)
[2023-11-19 07:11] LABS: C-REACTIVE PROTEIN 10.5 MG/DL (0.00-0.29)
[2023-11-19] MEDS ORDERED: RACEPINEPHRINE HCL 0.5 ML AMPUL IH ONE (09:15)
[2023-11-19 09:32] LABS: ABG PO2 117.6 mmHg (80-100); ABG pCO2 41.4 mmHg (35-45); BASE EXCESS 4.5 mmol/l; BICARBONATE 28.7 mmol/l (23-25); SaO2 98.8 %; o2 40 %; puncture site RADIAL LEFT
[2023-11-19 09:33] LABS: allen test SATISFACTORY
[2023-11-19] MEDS ORDERED: METHYLPREDNISOLONE SOD SUCC 40 MG VIAL IV ONE (11:32)
[2023-11-19 13:00] LABS: ABG PH 7.515 (7.35-7.45)
[2023-11-19 13:01] LABS: ABG PO2 64.3 mmHg (80-100); ABG pCO2 33.9 mmHg (35-45); BASE EXCESS 4.2 mmol/l; BICARBONATE 26.7 mmol/l (23-25); SaO2 94.6 %; Tco2 27.8 mmol/l; allen test SATISFACTORY; o2 32 %; puncture site RADIAL LEFT
[2023-11-20 05:52] LABS: HEMATOCRIT 29.6 % (39.0-48.0); HEMOGLOBIN 9.7 g/dL (13-16.00); MEAN CELL VOLUME 87.8 fL (80.0-100.00); MEAN CORPUSCULAR HEMOGLOBIN 28.8 pg (27.00-32.0); MEAN CORPUSCULAR HGB CONC 32.8 g/dl (32.0-36.0); PLATELET COUNT 331 K/uL (150-450); RED BLOOD COUNT 3.37 M/uL (4.00-6.00); RED CELL DISTRIBUTION WIDTH 15.6 % (11.5-14.5)
[2023-11-20] MEDS ORDERED: SODIUM CHLORIDE 0.45 % 1,000 ML IV SCH (07:15)
[2023-11-20] MEDS ORDERED: PANTOPRAZOLE SODIUM 40 MG TABLET.DR PO SCH (09:00)
[2023-11-20] MEDS ORDERED: SOD FERRIC GLUC COMPLX/SUCROSE 62.5 MG in 0.9 % SODIUM CHLORIDE 50 ML IV SCH (09:00)
[2023-11-20] MEDS ORDERED: BUDESONIDE 0.5 MG/2 ML AMPUL.NEB IH SCH (09:00)
[2023-11-20] MEDS ORDERED: PHYTONADIONE 10 MG/ML AMPUL IM SCH (09:00)
[2023-11-20] MEDS ORDERED: PROPRANOLOL HCL 10 MG TABLET PO SCH (09:00)
[2023-11-20] MEDS ORDERED: PANTOPRAZOLE SODIUM 40 MG/VIAL VIAL IV SCH (12:15)
[2023-11-20] MEDS ORDERED: ONDANSETRON HCL 2 MG/ML VIAL IV SCH (13:00)
[2023-11-20 15:48] LABS: ob POSITIVE (NEGATIVE)
[2023-11-20 16:32] LABS: HEMATOCRIT 31.3 % (39.0-48.0); HEMOGLOBIN 10.3 g/dL (13-16.00); MEAN CELL VOLUME 87.9 fL (80.0-100.00); MEAN CORPUSCULAR HEMOGLOBIN 28.9 pg (27.00-32.0); MEAN CORPUSCULAR HGB CONC 32.9 g/dl (32.0-36.0); PLATELET COUNT 395 K/uL (150-450); RED BLOOD COUNT 3.56 M/uL (4.00-6.00)
[2023-11-20] MEDS ORDERED: AA 5 %/CALCIUM/LYTES/DEXT 20 % 2,000 ML CENTRAL SCH (17:00)
[2023-11-20] MEDS ORDERED: FAMOtidine 40 MG TABLET PO SCH (21:00)
[2023-11-21 07:02] LABS: CREATININE SERUM 0.66 mg/dL (0.70-1.30); GFR 120.76; POTASSIUM 4.03 mEq/L (3.5-5.1)
[2023-11-21 07:16] LABS: HEMATOCRIT 29.8 % (39.0-48.0); HEMOGLOBIN 9.9 g/dL (13-16.00); MEAN CELL VOLUME 86.9 fL (80.0-100.00); MEAN CORPUSCULAR HEMOGLOBIN 28.8 pg (27.00-32.0); MEAN CORPUSCULAR HGB CONC 33.2 g/dl (32.0-36.0); PLATELET COUNT 444 K/uL (150-450); RED BLOOD COUNT 3.43 M/uL (4.00-6.00); RED CELL DISTRIBUTION WIDTH 16.9 % (11.5-14.5)
[2023-11-21] MEDS ORDERED: MIDAZOLAM HCL 2 MG/2 ML VIAL IV ONE (14:45)
[2023-11-21] MEDS ORDERED: FentaNYL CITRATE/PF 50MCG/ML 2ML VIAL IJ ONE (14:45)
[2023-11-22] MEDS ORDERED: FUROsemide 20 MG/2 ML VIAL IV SCH (01:00)
[2023-11-22 05:39] LABS: HEMATOCRIT 31.7 % (39.0-48.0); HEMOGLOBIN 10.6 g/dL (13-16.00); MEAN CELL VOLUME 87.9 fL (80.0-100.00); MEAN CORPUSCULAR HEMOGLOBIN 29.5 pg (27.00-32.0); MEAN CORPUSCULAR HGB CONC 33.6 g/dl (32.0-36.0); PLATELET COUNT 520 K/uL (150-450); RED CELL DISTRIBUTION WIDTH 16.2 % (11.5-14.5)
[2023-11-22 06:31] LABS: CREATININE SERUM 0.63 mg/dL (0.70-1.30); GFR 127.42; POTASSIUM 3.94 mEq/L (3.5-5.1)
[2023-11-22] MEDS ORDERED: DEXTROSE 5 % AND 0.9 % NACL 1,000 ML IV SCH (15:15)
[2023-11-22] MEDS ORDERED: ONDANSETRON HCL 2 MG/ML VIAL IV SCH (17:00)
[2023-11-22] MEDS ORDERED: SOD FERRIC GLUC COMPLX/SUCROSE 62.5 MG in 0.9 % SODIUM CHLORIDE 50 ML IV SCH (17:00)
[2023-11-22] MEDS ORDERED: SUCRALFATE 1 G TABLET PO SCH (17:00)
[2023-11-22] MEDS ORDERED: ALBUMIN HUMAN 0.25GM/ML (50ML) VIAL IV SCH (17:00)
[2023-11-23 08:02] LABS: HEMATOCRIT 35.3 % (39.0-48.0); HEMOGLOBIN 11.6 g/dL (13-16.00); MEAN CELL VOLUME 88.9 fL (80.0-100.00); MEAN CORPUSCULAR HEMOGLOBIN 29.2 pg (27.00-32.0); MEAN CORPUSCULAR HGB CONC 32.9 g/dl (32.0-36.0); PLATELET COUNT 562 K/uL (150-450); RED BLOOD COUNT 3.97 M/uL (4.00-6.00); RED CELL DISTRIBUTION WIDTH 16.1 % (11.5-14.5)
[2023-11-23 09:14] LABS: CALCIUM 8.6 mg/dL (8.5-10.1); CREATININE SERUM 0.77 mg/dL (0.70-1.30); GFR 101.08; POTASSIUM 3.86 mEq/L (3.5-5.1)
[2023-11-23 14:16] LABS: ABG PH 7.463 (7.35-7.45); ABG PO2 82.5 mmHg (80-100); ABG pCO2 40.7 mmHg (35-45); BASE EXCESS 4.3 mmol/l; BICARBONATE 28.5 mmol/l (23-25); SaO2 96.9 %; Tco2 29.7 mmol/l; allen test SATISFACTORY; o2 21 %; puncture site RADIAL LEFT
[2023-11-24 08:45] LABS: HEMATOCRIT 35.1 % (39.0-48.0); HEMOGLOBIN 11.6 g/dL (13-16.00); MEAN CELL VOLUME 89.4 fL (80.0-100.00); MEAN CORPUSCULAR HEMOGLOBIN 29.5 pg (27.00-32.0); PLATELET COUNT 626 K/uL (150-450); RED BLOOD COUNT 3.93 M/uL (4.00-6.00); RED CELL DISTRIBUTION WIDTH 16.9 % (11.5-14.5)
[2023-11-24] MEDS ORDERED: PANTOPRAZOLE SODIUM 40 MG TABLET.DR PO SCH (09:00)
[2023-11-24] MEDS ORDERED: HALOPERIDOL LACTATE 5 MG/ML AMPUL ONE (19:43)
[2023-11-24] MEDS ORDERED: LORazepam 2 MG/ML VIAL ONE (19:46)
[2023-11-24] MEDS ORDERED: FAMOtidine 40 MG TABLET PO SCH (21:00)
[2023-11-25 06:04] LABS: HEMATOCRIT 37.3 % (39.0-48.0); HEMOGLOBIN 12.4 g/dL (13-16.00); MEAN CORPUSCULAR HEMOGLOBIN 29.3 pg (27.00-32.0); MEAN CORPUSCULAR HGB CONC 33.3 g/dl (32.0-36.0); PLATELET COUNT 668 K/uL (150-450); RED BLOOD COUNT 4.24 M/uL (4.00-6.00); RED CELL DISTRIBUTION WIDTH 16.9 % (11.5-14.5)
[2023-11-25] MEDS ORDERED: PROPRANOLOL HCL10 MG PO ×2 (12:01→12:34)
[2023-11-25] MEDS ORDERED: FAMOTIDINE40 MG PO ×2 (12:01→12:33)
[2023-11-25] MEDS ORDERED: PANTOPRAZOLE SO40 MG PO ×2 (12:01→12:33)
[2023-11-25] MEDS ORDERED: CARAFATE1 GM PO (12:29)
[2023-11-25] MEDS ORDERED: CENTANY30 GM TOP (12:33)
[2023-11-25] MEDS ORDERED: DUI500 PO (12:33)
[2023-11-25] MEDS ORDERED: HIBICLENS118 ML TOP (12:33)
== END 2023-11-25 17:20 | disposition home or self-care (01) | DRG 377 ==
LOC: ER 22:32 → ICU 10-25 10:34 → MEDJ 10-25 10:34 → ICU 10-28 02:50 → MEDJ 11-24 13:47
PROVIDERS: General Practice; Internal Medicine; Internal Medicine Critical Care Medicine; Internal Medicine Infectious Disease; Radiology Vascular & Interventional Radiology; ADMIT Internal Medicine; ATTEND Internal Medicine
PROC: BW21ZZZ Computerized Tomography (CT Scan) of Abdomen and Pelvis (ICD-10-PCS; principal; 2023-10-24)
PROC: 02HV33Z Insertion of Infusion Device into Superior Vena Cava, Percutaneous Approach (ICD-10-PCS; 2023-10-25)
PROC: 30233N1 Transfusion of Nonautologous Red Blood Cells into Peripheral Vein, Percutaneous Approach (ICD-10-PCS; 2023-10-25)
PROC: 4A12X4Z Monitoring of Cardiac Electrical Activity, External Approach (ICD-10-PCS; 2023-10-27)
PROC: 0BH18EZ Insertion of Endotracheal Airway into Trachea, Via Natural or Artificial Opening Endoscopic (ICD-10-PCS; 2023-10-27)
PROC: 0DJ08ZZ Inspection of Upper Intestinal Tract, Via Natural or Artificial Opening Endoscopic (ICD-10-PCS; 2023-10-28)
PROC: BB24Y0Z Computerized Tomography (CT Scan) of Bilateral Lungs using Other Contrast, Unenhanced and Enhanced (ICD-10-PCS; 2023-10-30)
PROC: B246ZZZ Ultrasonography of Right and Left Heart (ICD-10-PCS; 2023-10-30)
PROC: 0W3P8ZZ Control Bleeding in Gastrointestinal Tract, Via Natural or Artificial Opening Endoscopic (ICD-10-PCS; 2023-11-04)
PROC: 30233R1 Transfusion of Nonautologous Platelets into Peripheral Vein, Percutaneous Approach (ICD-10-PCS; 2023-11-06)
PROC: 06HM33Z Insertion of Infusion Device into Right Femoral Vein, Percutaneous Approach (ICD-10-PCS; 2023-11-06)
PROC: BW21ZZZ Computerized Tomography (CT Scan) of Abdomen and Pelvis (ICD-10-PCS; 2023-11-12)
PROC: 0W993ZZ Drainage of Right Pleural Cavity, Percutaneous Approach (ICD-10-PCS; 2023-11-14)
PROC: B34HZZZ Ultrasonography of Right Upper Extremity Arteries (ICD-10-PCS; 2023-11-18)
PROC: B54MZZZ Ultrasonography of Right Upper Extremity Veins (ICD-10-PCS; 2023-11-18)
PROC: 0W993ZZ Drainage of Right Pleural Cavity, Percutaneous Approach (ICD-10-PCS; 2023-11-20)
DX: K92.0 Hematemesis (principal); J96.90 Respiratory failure, unspecified, unspecified whether with hypoxia or hypercapnia; R57.1 Hypovolemic shock; R04.2 Hemoptysis; K92.2 Gastrointestinal hemorrhage, unspecified; R00.0 Tachycardia, unspecified; J98.4 Other disorders of lung; D64.9 Anemia, unspecified; D72.828 Other elevated white blood cell count; I10 Essential (primary) hypertension; I95.89 Other hypotension; K63.89 Other specified diseases of intestine

== ENCOUNTER 2024-07-28 07:17 | Outpatient (CLI) | payer OTHER ==
[~2024-07-28 07:17] MED LIST changes: +CARAFATE1 GM PO; +CENTANY30 GM TOP; +DUI500 PO; +FAMOTIDINE40 MG PO; +HIBICLENS118 ML TOP; +PANTOPRAZOLE SO40 MG PO; +PROPRANOLOL HCL10 MG PO
== END 2024-07-28 07:23 | disposition home or self-care (01) ==
LOC: RAD 07:17
PROVIDERS: ATTEND Ophthalmology
DX: Z01.811 Encounter for preprocedural respiratory examination (principal)

== ENCOUNTER 2024-07-28 08:18 | Outpatient (CLI) | payer OTHER | END 2024-07-28 08:24 | disposition home or self-care (01) | LOC: EKG 08:18 | PROVIDERS: ATTEND Ophthalmology | DX: I10 Essential (primary) hypertension (principal) ==